=== PATIENT | male | born 1955 | race Caucasian/White ===

== ENCOUNTER 2019-11-25 01:05 | Outpatient (CLI) | payer BC, SELFPAY ==
[2019-11-25 19:18] LABS: SARS-CoV-2 RNA PCR Negative
== END 2019-11-25 01:06 | disposition home or self-care (01) ==
LOC: ANHCOVIDDT 01:05
PROVIDERS: PCP Family Medicine; Visit Provider Internal Medicine Gastroenterology
DX: Z01.812 Encounter for preprocedural laboratory examination (principal); Z20.828 Contact with and (suspected) exposure to other viral communicable diseases
CPT/HCPCS: 87635; C9803; U0003

== ENCOUNTER 2019-11-27 01:15 | Day surgery (SDC) | payer BC, SELFPAY ==
[2019-11-23 11:41] VITALS: BMI 27.9
[2019-11-27 09:18] VITALS: BP 168/93; PULSE 75; RESP 18; TEMP 36.2; O2SAT 100; BMI 27.7
--- NOTE | 2019-11-27 09:28 | WPDGICN ---
Assessment and Plan Assessment and plan (1) Positive colorectal cancer screening using Cologuard test: Code(s): R19.5 - Other fecal abnormalities Status: Acute Assessment and Plan: Plan is for colonoscopy today because colon guard test was positive. Further recommendations will be given after endoscopy. Plavix will be held briefly for this procedure. GI Consult Note Consult date/time: 11/27/19 09:28 HPI: Rivera Perez is a 63 year old male seen in evaluation at the request of Dr Darian Jha. Patient presents for screening colonoscopy. Patient recently underwent cologuard test which was found to be positive. He states his current weight appetite bowel movements are normal. He denies abdominal pain. He has had no blood in his stools. Family history is noncontributory. Past history is significant for atherosclerotic heart disease. He has a history of heart stents. Plavix will be held briefly for endoscopy. [facility] Family History Family History (Updated 02/23/16 @ 15:30 by DOCTOR UNKNOWN) Father Family history of cardiovascular disease Mother Family history of congestive heart failure Other Cerebrovascular accident Social History Social History Smoking packs per day: 0.5 Smoking cigarettes per day: 10.0 Years smoked: 30 Smoking pack-years: 15.00 Smoking status: Former smoker Tobacco type: cigarettes Smoking end date: 07/20/19 Alcohol intake: current Drinks per week: 10 Alcohol use details: 8 TO 10 BEERS PER WEEK Substance use: never Substance use type: does not use Living arrangements: with family Spiritual care concerns: No Meds Home Medications and Allergies Home Medications Medication Instructions Recorded Confirmed Type aspirin [Gonsalo Aspirin] 325 mg PO DAILY 11/23/19 11/23/19 History carvedilol 12.5 mg PO DAILY 11/23/19 11/23/19 History clopidogrel 75 mg PO DAILY 11/23/19 11/23/19 History nfynwndkspon-tnp-qucu-FA-vit K 1 tablet PO DAILY 11/23/19 11/23/19 History [Adults Multivitamin] ramipril 2.5 mg PO DAILY 11/23/19 11/23/19 History simvastatin 80 mg PO HS 11/23/19 11/23/19 History Allergies Allergy/AdvReac Type Severity Reaction Status Date / Time No Known Allergies Allergy Verified 11/23/19 11:22 Vital Signs Vital Signs - 24 hr 11/27/19 09:18 Temperature 97.2 F L Pulse Rate 75 Respiratory Rate 18 Blood Pressure 168/93 H Pulse Oximetry 100 Exam Narrative: Exam Narrative: patient is alert. Vital signs stable. HEENT exam unremarkable. Lungs are clear to auscultation and percussion. Heart is without murmur or extra sounds. Abdominal exam bowel sounds are present soft nontender with no organomegaly. Digital external rectal exam normal.
[2019-11-27] MEDS: LACTATED RINGERS 1,000 ML 150 ML IV CONT (09:32)
--- NOTE | 2019-11-27 09:53 | WPDANESEPPF ---
Anes - Initial Pre Proc Eval Procedure: Operation Date: 11/27/19 10:00 Proposed Procedures p Colonoscopy - Wilton Vizcarra MD Date/Time: 11/27/19 09:53 Surgeon: Wilton Vizcarra MD Pre Op Diagnosis: positive cologuard Patient Data Age: 63 Gender: M Height: 5 ft 11 in Weight: 90.3 kg Last Vital Signs Temp 97.2 F L 11/27/19 09:18 Pulse 75 11/27/19 09:18 Resp 18 11/27/19 09:18 BP 168/93 H 11/27/19 09:18 Pulse Ox 100 11/27/19 09:18 Allergies Allergy/AdvReac Type Severity Reaction Status Date / Time No Known Allergies Allergy Verified 11/23/19 11:22 Home Medications Medication Instructions Recorded Confirmed Type aspirin [Gonsalo Aspirin] 325 mg PO DAILY 11/23/19 11/23/19 History carvedilol 12.5 mg PO DAILY 11/23/19 11/23/19 History clopidogrel 75 mg PO DAILY 11/23/19 11/23/19 History sqyncdhjkhpd-grn-tsyh-FA-vit K 1 tablet PO DAILY 11/23/19 11/23/19 History [Adults Multivitamin] ramipril 2.5 mg PO DAILY 11/23/19 11/23/19 History simvastatin 80 mg PO HS 11/23/19 11/23/19 History Patient hx anesthesia problems: none Family hx anesthesia problems: none PMFSH Past Medical History Medical History (Updated 11/27/19 @ 09:49 by Alban Leon MD) CAD (coronary artery disease) Hyperlipidemia Hypertension Myocardial infarct, old Surgical History Surgical History (Updated 11/27/19 @ 09:49 by Alban Leon MD) Stented coronary artery Family History Family History (Updated 02/23/16 @ 15:30 by DOCTOR UNKNOWN) Father Family history of cardiovascular disease Mother Family history of congestive heart failure Other Cerebrovascular accident Social History Social History Smoking packs per day: 0.5 Smoking cigarettes per day: 10.0 Years smoked: 30 Smoking pack-years: 15.00 Smoking status: Former smoker Tobacco type: cigarettes Smoking end date: 07/20/19 Alcohol intake: current Drinks per week: 10 Alcohol use details: 8 TO 10 BEERS PER WEEK Substance use: never Substance use type: does not use Living arrangements: with family Spiritual care concerns: No Anes - Eval Final PreProcedure Day of Procedure 11/27/19 09:53 Patient weight: normal Heart: regular rate and rhythm Lungs: clear to auscultation Airway: Mallampati scale class II Neurological: alert and oriented Last oral intake: >/= 8 hours ASA classification: III Emergent: no Anesthetic plan: proceed Anesthesia type and monitoring: general GIVS and standard monitoring Informed Consent: The patient's anesthetic plan and its attendant risks and benefits were discussed with the patient/family/POA. Questions were solicited and answers provided to the satisfaction of the patient/family/POA.
[2019-11-27] MEDS: SIMETHICONE ORAL SUSPENSION 20 MG/0.3 ML 30 ML BOTTLE 0.6 ML IRRIGATION (10:16)
[2019-11-27 10:39] VITALS: BP 119/71; PULSE 71; RESP 16; O2SAT 98
[2019-11-27 10:49] VITALS: BP 129/70; PULSE 71; RESP 16; O2SAT 98
[2019-11-27 10:59] VITALS: BP 127/71; PULSE 66; RESP 18; O2SAT 98
== END 2019-11-27 11:30 | disposition home or self-care (01) ==
PROVIDERS: PCP Family Medicine; Visit Provider Internal Medicine Gastroenterology
PROC: 0DJD8ZZ Inspection of Lower Intestinal Tract, Via Natural or Artificial Opening Endoscopic (ICD-10-PCS; CPT 45378; principal; 2019-11-27 10:00)
DX: Z12.11 Encounter for screening for malignant neoplasm of colon (principal); D12.5 Benign neoplasm of sigmoid colon; K63.5 Polyp of colon; K64.8 Other hemorrhoids; R19.5 Other fecal abnormalities; I25.10 Atherosclerotic heart disease of native coronary artery without angina pectoris; I10 Essential (primary) hypertension; I25.2 Old myocardial infarction; E78.5 Hyperlipidemia, unspecified; Z79.02 Long term (current) use of antithrombotics/antiplatelets; Z79.82 Long term (current) use of aspirin; Z95.5 Presence of coronary angioplasty implant and graft; Z87.891 Personal history of nicotine dependence
CPT/HCPCS: 45385; 88305; J2001; J2704; J7120

== ENCOUNTER → 2020-05-14 02:42 | Outpatient (CLI) | payer OTHER, SELFPAY ==
[2020-05-14 20:22] LABS: SARS-CoV-2 RNA PCR Negative
== END ==
PROVIDERS: PCP Family Medicine; Visit Provider Specialist
DX: Z01.812 Encounter for preprocedural laboratory examination (principal); Z20.822 Contact with and (suspected) exposure to COVID-19
CPT/HCPCS: C9803; U0003; U0005

== ENCOUNTER 2020-05-18 01:38 | Day surgery (SDC) | payer OTHER, SELFPAY ==
[2020-05-17 16:47] VITALS: BMI 28.6
[2020-05-18] VITALS (19 sets, daily range): BP systolic 115–164; BP diastolic 59–104; PULSE 62–74; RESP 14–26; TEMP 36.4; O2SAT 95–98; BMI 28.5
[2020-05-18 07:40] LABS: Basophils Percent Auto 0.7 % (0.2-1.2); Eosinophils Absolute Auto 0.2 K/mm3 (0-0.3); Eosinophils Percent Auto 3.9 % (0-4.4); Hematocrit 44.7 % (42.0-52.0); Hemoglobin 14.8 g/dL (14.0-18.0); Immature Granulocyte Absolute 0.02 K/mm3 (0.00-0.031); Immature Granulocyte Percent A 0.4 % (0-0.5); Lymphocytes Absolute Auto 1.84 K/mm3 (0.9-3.2); Lymphocytes Percent Auto 32.3 % (18.3-44.2); Mean Corpuscular HGB Conc 33.1 g/dl (32-36); Mean Corpuscular Hemoglobin 30.4 pg (26-34); Mean Corpuscular Volume 91.8 fl (80-100); Mean Platelet Volume 9.7 fl (7.4-10.4); Monocytes Absolute Auto 0.6 K/mm3 (0.1-0.6); Monocytes Percent Auto 9.6 % (2.6-8.5); Neutrophils Percent Auto 53.1 % (45.5-73.1); Platelet Count Result 169 k/mm3 (150-375); Red Blood Count 4.87 M/mm3 (4.6-6.20); Red Cell Distribution Width 12.4 % (11.5-14.5); White Blood Count 5.7 K/mm3 (4.5-10.0)
--- NOTE | 2020-05-18 07:46 | SUR.PREOP ---
Patient arrives ambulatory to [facility] accompanied by . VS obtained, PIV established, pulses assessed, and groins prepped. Labs obtained and sent. Consent signed. Patient updated on plan of care and verbalizes understanding. Will continue to monitor.
[2020-05-18 07:52] LABS: Anion Gap 5 mmol/L (8-16); Blood Urea Nitrogen 15 mg/dL (9-20); Calcium 8.9 mg/dL (8.4-10.2); Carbon Dioxide 29 mmol/L (22-30); Chloride 108 mmol/L (98-107); Estimated CRCL calculation 81 ml/min; Estimated Glomerular Filt Rate > 60; Glucose 112 mg/dL (75-110); Potassium 4.8 mmol/L (3.4-5.0); Sodium 142 mmol/L (137-145)
[2020-05-18 08:01] LABS: INR 0.9; Prothrombin Time 12.4 Seconds (11.1-14.7)
--- NOTE | 2020-05-18 10:46 | WPDMODSED ---
Moderate Sedation Note-Pt Data Patient Data Diagnosis: Abnormal nuclear stress test with reduced left ventricular systolic function Present Complaint: this is a 64-year-old patient with remote history of anterior wall infarction. He was being evaluated because of symptoms of dyspnea and chest pain and findings demonstrated large fixed anterior infarction with low left ventricular ejection fraction which was significantly reduced from previous records in this patient's chart. Because of the significant reduction in LV systolic function a follow-up angiogram has been recommended Procedure to be performed/Plan: left heart catheterization Allergies Allergy/AdvReac Type Severity Reaction Status Date / Time No Known Allergies Allergy Verified 05/18/20 07:36 Home Medications Medication Instructions Recorded Confirmed Type aspirin [Gonsalo Aspirin] 325 mg PO DAILY 11/23/19 05/18/20 History carvedilol 12.5 mg PO DAILY 11/23/19 05/18/20 History clopidogrel 75 mg PO DAILY 11/23/19 05/18/20 History gowjkkiiibya-hcc-kebv-FA-vit K 1 tablet PO DAILY 11/23/19 05/17/20 History [Adults Multivitamin] ramipril 2.5 mg PO DAILY 11/23/19 05/18/20 History simvastatin 80 mg PO HS 11/23/19 05/17/20 History Current Medications: Active Medications Sodium Chloride (Normal Saline Iv) 500 mls @ 100 mls/hr IV CONT .Q5H MARTIN Sedation/Anesthesia: No previous sedation/anesthesia problems (including family history). [facility] Past Medical History Medical History (Updated 11/27/19 @ 09:49 by Alban Leon MD) CAD (coronary artery disease) Hyperlipidemia Hypertension Myocardial infarct, old Surgical History Surgical History (Updated 11/27/19 @ 09:49 by Alban Leon MD) Stented coronary artery Family History Family History (Updated 02/23/16 @ 15:30 by DOCTOR UNKNOWN) Father Family history of cardiovascular disease Mother Family history of congestive heart failure Other Cerebrovascular accident Social History Social History Smoking packs per day: 0.5 Smoking cigarettes per day: 10.0 Years smoked: 30 Smoking pack-years: 15.00 Smoking status: Former smoker Tobacco type: cigarettes Smoking end date: 07/20/19 Alcohol intake: current Drinks per week: 10 Substance use: never Substance use type: does not use Spiritual care concerns: No Mod Sed Physical Exam Physical Exam Pre Procedural Exam: Normal: Appearance, Nose, Neck, Throat, Airway, Lungs, Heart Rate, Heart Rhythm, Neuro Exam and Extremities and Variation: Heart Size ( PMI is enlarged and laterally displaced) Hours since solid foods: 14 Hours since liquid intake: 14 Internal Medicine - PN: Obj Da Vital Signs Vital Signs: Vital Signs - 24 hr 05/18/20 07:38 Temperature 36.4 C Pulse Rate 74 Respiratory Rate 17 Blood Pressure 164/97 H Pulse Oximetry 98 Meds/Results Medications: Active Medications Generic Name Dose Route Start Last Admin Trade Name Andra PRN Reason Stop Dose Admin Sodium Chloride 500 mls @ 100 mls/hr 05/18/20 07:00 Normal Saline Iv IV CONT .Q5H MARTIN Labs CBC & Chem 7: 05/18/20 07:26 05/18/20 07:26 Labs: Laboratory Results - last 24 hr 05/18/20 05/18/20 05/18/20 07:26 07:26 07:26 WBC 5.7 RBC 4.87 Hgb 14.8 Hct 44.7 MCV 91.8 MCH 30.4 MCHC 33.1 RDW 12.4 Plt Count 169 MPV 9.7 Immature Gran % (Auto) 0.4 Neut % (Auto) 53.1 Lymph % (Auto) 32.3 [place] % (Auto) 9.6 H Eos % (Auto) 3.9 Baso % (Auto) 0.7 Lymph # (Auto) 1.84 [place] # (Auto) 0.6 Eos # (Auto) 0.2 Baso # (Auto) 0.0 Abs Immat Gran (auto) 0.02 Absolute Neuts (auto) 3.0 Absolute Nucleated RBC 0.0 Nucleated RBC % 0.0 PT 12.4 INR 0.9 Sodium 142 Potassium 4.8 Chloride 108 H Carbon Dioxide 29 Anion Gap 5 L BUN 15 Creatinine 0.90 Estim Creat Clear Calc 81 Estimated GFR > 60 Glucose 112 H C
--- NOTE | 2020-05-18 11:30 | WPDCARDPROC ---
Cardiac Cath Procedure Note Date of procedure:: 05/18/20 Performing physician:: Vinay Palafox MD Indication:: Coronary artery disease with significant decline in LV systolic function Brief clinical history:: this is a 64-year-old man with coronary disease sustaining an anterior wall infarction in 1994 which was treated with balloon angioplasty he subsequently had a RCA stent procedure done in 2002. He is reporting intermittent episodes of chest pain in an unpredictable random fashion. A stress test was performed in the outpatient setting which demonstrated markedly reduction in left ventricular systolic function prompting recommendation to perform a follow-up angiogram. Procedure Procedure performed:: Left ventriculography coronary angiography Sedation/Medication given:: fentanyl 50 mg Versed 2 mg case start time 11:00 a.m. case end time 11:20 a.m. sedation provided by Adenike Shirley RN, trained observer Access site:: right femoral artery Estimated blood loss:: 10-15 cc Procedure note:: patient was brought to the catheterization lab in the postabsorptive state where the right femoral triangle was prepared and draped in the usual fashion. lidocaine was administered for local anesthesia and using the modified Seldinger technique 5 Montenegrin sheath was placed into the right femoral artery. After this left heart catheterization was carried out. A 5 Montenegrin angled pigtail catheter was used does document left-sided hemodynamics and to injected LV g in the ALDRICH projection. Following this pullback pressures were measured across the aortic valve. A standard 5 Montenegrin JR4 catheter was then used to engage and inject the right coronary artery and orthogonal projections. The standard 5 Montenegrin FL4 catheter was used to engage and inject the left coronary artery in multiple projections. The cineangiograms were reviewed and the case was then terminated. He was taken to the holding area for manual sheath removal there were no procedural complications. 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 Findings:: Hemodynamics: Central aortic pressure is 120/58 left ventricle 120/6 end-diastolic pressure 20 there is no significant gradient upon pullback across the aortic valve. Left ventricle: The LV is markedly dilated there is severe global systolic hypocontractility noted with an ejection fraction that I would visually estimate to be 10%. The left main coronary artery is short medium in caliber and patent the LAD is a medium caliber artery extending down to around the apex the proximal segment of the LAD has minimal luminal narrowing but no more than about 20-30% stenosis. There is MUNIRA 3 flow in the LAD all the way down to the apex. No significant recurrent stenosis following balloon angioplasty 26 years ago circumflex is a moderate caliber artery giving rise to the marginal branch is the circumflex is free of significant disease the right coronary artery is moderate caliber and dominant to the posterior circulation. There is visible stent material in the 2nd portion of the RCA. This segment of the artery has 95% stenosis in the stented segment. This stent again was placed 18 years ago. Conclusion:: 1. Coronary artery disease with recurrent high-grade stenosis in the mid RCA which was stented in the remote past as detailed above 2. no significant stenosis in the LAD which was balloon dilated in the remote past as detailed above 3. profound left ventricular systolic dysfunction Vinay Palafox MD [facility]
--- NOTE | 2020-05-18 12:42 | PM.PNCARD ---
Progress Note: A&P Additional Plan 64-year-old man with: Coronary artery disease following anterior wall infarction 26 years ago and angioplasty of the LAD at that time as well as RCA disease that was stented in 2002. Catheterization today demonstrates the left coronary to be patent but there is high-grade stenosis in the stented segment of his mid RCA. Left ventricular ejection fraction is profoundly depressed. At this time my recommendations would be to transition his Edwardo inhibitor to Entresto, arrange for PCI of the right coronary lesion ideally downtown at [facility] because of the very poor LV function this is a high-risk intervention. While he is down there he can be seen in consultation by the professor of industrial technology so that if his ejection fraction does not respond well permanent ICD can be arranged for in the future. In the meantime we will arrange for a life vest to be supplied to him today prior to discharge. If this cannot be supplied prior to discharge we will keep him in the hospital until that has been arranged. Vinay Palafox MD [facility] Subjective Date/time seen: Date of service: 05/18/20 12:42 Interval history: Follow-up visit in this 64-year-old man with: Coronary artery disease with a remote history of anterior wall infarction treated with balloon angioplasty in 1994 and RCA stenting in 2002. Patient presents for elective follow-up catheterization this morning because of symptoms of dyspnea, intermittent atypical sounding chest pain but marked decline in left ventricular systolic function on nuclear stress test data. Catheterization done today demonstrates remaining patency of his left coronary artery, high-grade stenosis in the 2nd portion of the RCA which was previously stented and profoundly depressed left ventricular systolic function with an ejection fraction of 10%. Exam Const: General: comfortable and no acute distress HENMT: Mouth: Yes moist mucous membranes Eyes: Sclera: sclerae normal Pupils: Equal, round and reactive pupils present Neck: Neck: supple and no JVD Thyroid: thyroid normal Resp: Effort & Inspection: normal respiratory effort Auscultation: clear to auscultation bilaterally Cardio: Rate: regular rate Rhythm: regular rhythm Other: PMI enlarged and laterally displaced summation gallop is audible GI: GI Palp: Yes Soft to palpation Auscultation: normal bowel sounds Skin: General skin exam: normal color Neuro: Cognition (Neuro): normal cognition Extrem: General: normal to inspection Objective Data Vital Signs Vital Signs: Vital Signs - 24 hr 05/18/20 07:38 05/18/20 11:49 05/18/20 11:53 Temperature 36.4 C 36.4 C Pulse Rate 74 65 64 Respiratory Rate 17 17 15 Blood Pressure 164/97 H 128/74 131/59 L Pulse Oximetry 98 95 96 05/18/20 11:55 05/18/20 12:00 05/18/20 12:05 Temperature Pulse Rate 68 68 71 Respiratory Rate 26 H 15 15 Blood Pressure 128/80 135/94 H 146/104 H Pulse Oximetry 96 97 97 05/18/20 12:10 05/18/20 12:15 05/18/20 12:25 Temperature Pulse Rate 67 64 67 Respiratory Rate 14 15 17 Blood Pressure 140/83 115/80 140/87 Pulse Oximetry 97 97 97 Meds/Results Medications: Active Medications Generic Name Dose Route Start Last Admin Trade Name Freq PRN Reason Stop Dose Admin Sodium Chloride 500 mls @ 100 mls/hr 05/18/20 07:00 Normal Saline Iv IV CONT .Q5H MARTIN Sodium Chloride 1,000 mls @ 125 mls/hr 05/18/20 11:29 Normal Saline Iv IV CONT 05/18/20 19:28 .Q8H ONE Labs Labs: Laboratory Results - last 24 hr 05/18/20 05/18/20 05/18/20 07:26 07:26 07:26 WBC 5.7 RBC 4.87 Hgb 14.8 Hct 44.7 MCV 91.8 MCH 30.4 MCHC 33.1 RDW 12.4 Plt Count 169 MPV 9.7 Immature Gran % (Auto) 0.4 Neut % (Auto) 53.1 Lymph % (Auto) 32.3 [place] % (Auto) 9.6 H Eos % (Auto) 3.9 Baso % (Auto) 0.7 Lymph # (Auto) 1.84 [place] # (Auto) 0.6 Eos # (Auto) 0.2 Baso # (Auto) 0
--- NOTE | 2020-05-18 18:20 | SUR.PHASEII ---
DEBORAH Jeong went through discharge instructions with patient and . Patient verbalized understanding of discharge instructions. Patient was escorted by wheelchair to car and discharged.
== END 2020-05-18 18:35 | disposition home or self-care (01) ==
PROVIDERS: Visit Provider Specialist
PROC: 4A023N7 Measurement of Cardiac Sampling and Pressure, Left Heart, Percutaneous Approach (ICD-10-PCS; CPT 93452; principal; 2020-05-18 08:30)
DX: I25.10 Atherosclerotic heart disease of native coronary artery without angina pectoris (principal); R94.39 Abnormal result of other cardiovascular function study; R07.9 Chest pain, unspecified; R06.00 Dyspnea, unspecified; I11.9 Hypertensive heart disease without heart failure; I25.2 Old myocardial infarction; Z95.5 Presence of coronary angioplasty implant and graft; Z79.02 Long term (current) use of antithrombotics/antiplatelets; Z79.82 Long term (current) use of aspirin; Z87.891 Personal history of nicotine dependence
CPT/HCPCS: 36415; 80048; 85025; 85610; 93458; C1887; C1894; C9803; J0461; J0583; J1644; J2250; J3010; J7040; U0003; U0005

== ENCOUNTER 2022-08-01 16:16 | Outpatient (CLI) | payer BC, SELFPAY ==
--- NOTE | ~2022-08-01 | US_ITS ---
EXAMINATION: US aorta [facility] scr[facility] DATE: 08/02/2022 08:35 CDT INDICATION: Nicotine dependence] TECHNIQUE: Grayscale, color Doppler, and pulsed Doppler images of the aorta and common iliac arteries were obtained. COMPARISON: None. FINDINGS: The proximal aorta measures 2.3 cm greatest sagittal dimension. The mid aorta measures 1.7 cm greates t sagittal dimension. The distal aorta measures 1.9 cm greatest sagittal dimension. The right common internal iliac artery measures 9 mm. The left common iliac artery measures 12 mm. IMPRESSION: 1. Normal caliber aorta without aneurysm. Reviewed, dictated and finalized at location L.
--- NOTE | ~2022-08-01 | CT_ITS ---
EXAMINATION: CT lung screening DATE: 08/01/2022 21:25 INDICATION: Nicotine dependence. TECHNIQUE: Computed tomography (CT) of the chest was performed without intravenous contrast. Automate d exposure control and iterative reconstruction technique were employed. COMPARISON: CT dated 08/01/2022 FINDINGS: There is atherosclerosis of the aorta and coronary arteries. Trace pericardial effusion. No thoracic lymphadenopathy. There is a 1.4 cm subcutaneous nodule left posterior chest inferiorly, lik nighat benign sebaceous cyst the upper abdomen is unremarkable. There is a 2-3 mm right upper lobe nodul e, image 40. There is a 2 mm right lower lobe nodule, image 72. There is a 3 mm right fissural nodule , image 71. No endobronchial lesions. No focal consolidation. Mild emphysema. No pneumothorax. Mild t horacic spondylosis.. IMPRESSION: 1. Lung-RADS category 2: Benign appearance or behavior. Continue annual screening with noncontrast lo w-dose chest CT in 12 months. Reviewed, dictated and finalized at location L. IMPRESSION: 1. Lung-RADS category 2: Benign appearance or behavior. Continue annual screeni ng with noncontrast low-dose chest CT in 12 months.
== END 2022-08-01 16:17 | disposition home or self-care (01) ==
LOC: ANHIMG 16:23
PROVIDERS: PCP Student in an Organized Health Care Education/Training Program; Visit Provider Student in an Organized Health Care Education/Training Program
DX: Z13.6 Encounter for screening for cardiovascular disorders (principal); F17.210 Nicotine dependence, cigarettes, uncomplicated
CPT/HCPCS: 71271; 76706

== ENCOUNTER 2024-10-24 09:47 | Inpatient (IN) | payer BC, MEDICARE, SELFPAY ==
[2024-10-24] VITALS (62 sets, daily range): BP systolic 48–149; BP diastolic 29–112; PULSE 0–154; RESP 10–38; TEMP 37; O2SAT 13–100
--- NOTE | ~2024-10-24 | US_ITS ---
EXAMINATION: US abdomen limited DATE: 10/24/2024 12:06 INDICATION: Intermittent epigastric pain. Positive Kaufman sign. TECHNIQUE: Multiple grayscale and Doppler ultrasound images of the abdomen were obtained. COMPARISON: None FINDINGS: The pancreatic head and body are normal in appearance. The pancreatic tail is not visualized. Liver has normal echogenicity and contour, with a smooth surface. No liver lesion identified. No intrahepatic biliary duct dilation suspected. Portal venous flow was seen in the hepatopetal, normal direction and has normal Doppler waveform. The gallbladder is normal in appearance. There is no cholelithiasis. The common bile duct measures 3-4 mm, which is normal. Sonographic Kaufman sign was reported as negative by the heating and ventilating drafter. The visualized cephalad inferior vena cava is normal. Visualized portion of the right kidney demonstrates normal contour and echogenicity with no hydronephrosis. IMPRESSION: 1. Normal right upper quadrant ultrasound. Reviewed, dictated and finalized at location A.
--- NOTE | ~2024-10-24 | XR_ITS ---
EXAMINATION: XR chest 1V portable DATE: 10/24/2024 16:00 INDICATION: Worsening heart failure TECHNIQUE: frontal view of the chest was obtained. COMPARISON: Chest radiograph and CT from earlier on 10/24/24 FINDINGS: Mild reticular opacities at the bilateral lung bases which could represent atelectasis or new minimal pulmonary edema. No pleural effusion or pneumothorax. Cardiomegaly. Single lead cardiac pacemaker/AICD with distal tip near the apex of the right ventricle. IMPRESSION: 1. Mild reticular opacities at the bilateral lung bases which could represent atelectasis or new minimal pulmonary edema. Reviewed, dictated and finalized at location A. IMPRESSION: 1. Mild reticular opacities at the bilateral lung bases which could represent a telectasis or new minimal pulmonary edema.
--- NOTE | ~2024-10-24 | XR_ITS ---
EXAMINATION: XR chest PICC line DATE: 10/24/2024 17:11 INDICATION: PICC line placement TECHNIQUE: frontal view of the chest was obtained. COMPARISON: Chest radiograph dated 10/24/24 at 3:54 PM FINDINGS: Right upper extremity peripherally inserted central venous catheter (PICC) tip near the superior cavoatrial junction. Unchanged mild reticular opacities at the bilateral lung bases. No pleural effusion or pneumothorax. Mild cardiomegaly. Single lead cardiac pacemaker/AICD with lead tip at the apex of the right ventricle. IMPRESSION: 1. Right PICC line tip near the superior cavoatrial junction. 2. Persistent mild reticular opacities at the bilateral lung bases which could represent atelectasis or minimal pulmonary edema. Reviewed, dictated and finalized at location A.
--- NOTE | ~2024-10-24 | CT_ITS ---
EXAMINATION: CTA chest PE abdomen pel DATE: 10/24/2024 12:41 INDICATION: Chest pain, shortness of breath and d-dimer. Epigastric abdominal pain and transaminitis. TECHNIQUE: Computed tomography (CT) pulmonary angiogram of the chest was performed with 100 mL Omnipaque-350 intravenous contrast. Additional 3D reconstructions utilizing coronal maximum intensity projection (MIP) were performed. CT of the abdomen and pelvis was performed with intravenous contrast utilizing the same contrast bolus following a short delay. Automated exposure control and iterative reconstruction technique were employed. The dose-length product was 1189.65 mGy-cm. COMPARISON: None FINDINGS: Chest: No pulmonary embolism. Very small right pleural effusion. Mild dependent atelectasis in the bilateral lower lobes, right greater than left. No pneumonia, pulmonary edema or pneumothorax. Heart size is normal. Atherosclerotic coronary artery calcifications and likely coronary artery stenting along the right coronary artery. Small pericardial effusion. Thoracic aorta is normal in caliber. Single lead cardiac pacemaker/AICD with lead tip near the apex of the right ventricle. Mild to moderate thoracic spondylosis with bridging osteophytes at multiple levels consistent with diffuse idiopathic skeletal hyperostosis (DISH). Abdomen/pelvis: Liver, gallbladder, spleen, pancreas, bilateral adrenal glands and right kidney are normal. 1.8 cm left renal cyst. Mild diverticulosis along the descending and sigmoid colon without adjacent inflammatory stranding to suggest diverticulitis. Appendix is not visualized and there is a suture line along the tip the cecum consistent with prior appendectomy. No bowel obstruction. Mild wall thickening of the bladder with stranding in the fat surrounding the bladder is concern for cystitis. Small amount of free fluid in the pelvis. No abscess or free intraperitoneal gas. There is calcified atherosclerosis of the aorta and many of the other arteries. Fusiform aneurysms of the bilateral common iliac arteries measuring 2.8 cm in diameter on the left and 2.2 cm on the right. Severe stenosis at the bifurcation of the left common iliac artery. There is additional moderate stenosis at the origin of the bilateral superficial femoral arteries. Small right and moderate-sized left fat-containing inguinal hernias with additional small amount of ascites in the direct component of the left inguinal hernia. Mild lumbar spondylosis. IMPRESSION: 1. No pulmonary embolism. 2. Very small right pleural effusion. 3. Small pericardial effusion. 4. Mild wall thickening of the bladder and mild stranding in the surrounding fat raising possibility of cystitis. Correlate with urinalysis. 5. Nonspecific small amount of ascites in the deep pelvis. 6. Small right and moderate-sized left inguinal hernias, both containing fat and with additional small amount of ascites on the left. 7. Extensive atherosclerotic disease and bilateral common iliac artery aneurysms with severe stenosis at the bifurcation of the left common iliac artery. Reviewed, dictated and finalized at location A. IMPRESSION: 1. No pulmonary embolism. 2. Very small right pleural effusion. 3. Small pericardial effusion. 4. Mild wall thickening of the bladder and mild stranding in the surrounding fa t raising possibility of cystitis. Correlate with urinalysis. 5. Nonspecific small amount of ascites in the deep pelvis. 6. Small right and moderate-sized left inguinal hernias, both containing fat an d with additional small amount of ascites on the left. 7. Extensive atherosclerotic disease and bilateral common iliac artery aneurysm s with severe stenosis at the bifurcation of the left common iliac artery.
--- NOTE | ~2024-10-24 | XR_ITS ---
EXAMINATION: XR chest 1V portable DATE: 10/24/2024 11:01 INDICATION: Chest pain and shortness of breath TECHNIQUE: frontal view of the chest was obtained. COMPARISON: Chest CT dated 08/01/2022 FINDINGS: Mild linear discoid atelectasis/scarring at the bilateral costophrenic angles. No other airspace opacities, pulmonary edema, pleural effusion or pneumothorax. Heart size is normal. Single lead pacemaker/AICD seen with lead tip projecting over the apex of the right ventricle. There are bridging osteophytes at multiple levels consistent with diffuse idiopathic skeletal hyperostosis (DISH). IMPRESSION: 1. Mild discoid atelectasis/scarring at the bilateral lung bases. Reviewed, dictated and finalized at location A.
--- OUTSIDE RECORDS SUMMARY | 2024-10-24 09:50 | XMS_ITS | Clinical Summary ---
Author Organization [facility] Address [address] [place] [address] Care Team Providers Care Rn [facility] Name Role Phone Unavailable Primary Care Provider Unavailabl e Source Comments [facility],non-owned Affiliates and Associated Physician Practices is amultiple site organization consisting of ambulatory clinics and hospital sitesin [place], [place], [place] and [place]. This disclosure is being madepursuant to the Care Everywhere program and may not contain all information available regarding this patient. 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 Gender Identity Not on file Sexual Orientation Not on file Plan of Treatment Health Maintenance Due Date Last Done Comments COLOGUARD (AGES 45-75) - COL ON CA SCREENING 1956 COLON MONITORING 1956 COLONOSCOPY - COLON CA SCREENING 1956 CT COLONOGRAPHY - COLON CA SCREENING 1956 Colorectal Cancer Screening 1956 FIT - COLON CA SCREENING 1956 FLEX SIG - COLON CA SCREENING 1956 LIPID TESTING 1956 HEPATITIS C SCREENING 11/23/1974 DTAP/TDAP/TD VACCINES (1 - Tdap) 11/28/1975 PNEUMOCOCCAL VACCINE 50+ (1 of 1 - PCV) 2006 ZOSTER VACCINE (1 of 2) 2006 DEPRESSION SCREENING 02/19/2024 COVID-19 VACCINE (1 - 2023-2 5 season) 2024 INFLUENZA VACCINE (#1) 2024 Respiratory Syncytial Virus (RSV) Vaccine Pt: or over 60 yrs (1 - 1-dose 75+ series) 11/28/2031 HEPATITIS B VACCINE Aged Out No longe r eligible based on patient's age to complete this topic HIB VACCINE Aged Out No longer eligi ble based on patient's age to complete this topic HPV VACCINE Aged Out No longer eligi ble based on patient's age to complete this topic MENINGOCOCCAL (Group B) VACC INE SHARED DECISION-MAKING Aged Out No longer eligibl e based on patient's age to complete this topic MENINGOCOCCAL GROUPS A/C/Y/W VACCINE Aged Out No longer eligible b ased on patient's age to complete this topic Insurance [facility]
--- OUTSIDE RECORDS SUMMARY | 2024-10-24 09:50 | XMS_ITS | Clinical Summary ---
Author Organization [facility] [address] Address [address] [place] [address] Care Team Providers Care Co Pilot Name Role Phone Iliamaribell Nichoromina Kitchen Primary Care Provide r Allergies No known active allergies Medications aspirin 81 mg enteric coated tablet Take 1 tablet (81 mg total) by mouth daily 30 tablet 11 1 Active therapeutic multivitamin (THERA) tabletIndication s:Vitamin Deficiency Prevention Take 1 tablet by mouth daily Active carvediloL (COREG) 12.5 mg tablet TAKE 1 TABLET(12. 5 MG) BY MOUTH TWICE DAILY WITH MEALS 180 tablet 2 4 Active rosuvastatin (CRESTOR) 20 mg tablet Take 1 tablet (20 mg total) by mouth daily 90 tablet 3 5 026 Active sacubitriL-valsa rtan (ENTRESTO) 49-51 mg tablet TAKE 1 TABLET BY MOUTH TWICE DAILY 180 tablet 2 5 Active sacubitriL-valsa rtan (ENTRESTO) 49-51 mg tabletIndication s:chronic heart failure Take 1 tablet by mouth 2 (two) times a day 180 tablet 3 4 025 Discontinued Active Problems Problem Noted Date Diagnosed Date Heart failure with reduced left ventricular func tion 05/28/2023 Automatic implantable cardiac defibrillator in s itu 02/12/2023 Overview (02/12/2023): Hernán Single ICD. Dx; ICM. DOI 02/27/2023-Kahanda. Berry remote monitoring. Ischemic cardiomyopathy 06/16/2020 History of coronary artery stent placement 06/16 Coronary artery disease invo [place]ving [place] coronary artery of [place] heart without angina pectoris 10/04/2016 Status post insertion of drug eluting coronary a rtery stent 10/04/2016 Arthralgia of shoulder 04/11/2010 Localized osteoarthrosis 04/11/2010 Encounters Date Type Department Care Team Description 09/17/2024 11:45 AM CDT Office Visit [facility] Cardiology at [address] [place] [address] Vinay Palafox MD Ischemic cardiomyopathy (Primary Dx); Status post insertion of drug eluting coronary artery stent; Automatic implantable cardiac defibrillator in situ 07/28/2024 7:45 AM CDT Ancillary Procedure [facility] Card[facility] [address] [address] Ischemic cardiomyopathy; Automatic implantable cardiac defibrillator in situ from Last 3 Months Surgical History Surgery Date Site/Laterality Comments CARDIAC CATHETERIZATION CORONARY ANGIOPLASTY CORONARY STENT PLACEMENT HERNIA REPAIR APPENDECTOMY ULNAR NERVE TRANSPOSITION Right Medical History Medical History Date Comments Coronary artery disease Hyperlipidemia Hypertension CHF (congestive heart failure) ([facility]) Family History Medical History Relation Name Comments Heart attack Father 2 Myocardial Infa rction; Relation Name Status Comments Father 1 Alive Father 2 Social History Tobacco Use Types Packs/Day Years Used Date Smoking Tobacco: Former Cigarettes Smokeless Tobacco: Never Tobacco Cessation:Counseling Given: Not Answered Comments:Smoking History Packs/day: 0 Packs Alcohol Use Standard Drinks/Week Comments Yes 6 (1 standard drink = 0.6 oz pur e alcohol) AUDIT-C Answer Date Recorded Q1: How often do you have a drink containing alc ohol? 2-3 times a week 02/27/2023 Q2: How many drinks containi ng alcohol do you have on a typical day when you are drinking? 1 or 2 02/27/2023 Q3: How often do you have si x or more drinks on one occasion? Weekly 02/27/2023 Personal Safety Answer Date Recorded Have you ever been in or are you currently in a harmful physical or emotional relationship or is someone making you feel afraid or unsafe? 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 Respiratory Rate 18 05/28/2023 10:1 6 AM CDT Oxygen Saturation 97% 09/17/2024 11: 46 AM CDT Inhaled Oxygen Concentration - - Weight 102.6 kg (226 lb 1.6 oz) 025 11:46 AM CDT Height 182.9 cm (6') 09/17/2024 11:46 AM CDT Body Mass Index 30.66 09/17/2024 11:46 AM CDT Plan of Treatment Health Maintenance Due Date Last Done Comments Colon Cancer Screening-Colonoscopy 1955 Depression Screening 1955 Hepatitis C Screening 1955 Prostate Cancer Screening-PSA 1956 Hepatitis B Screening 1974 Abdominal Aortic Aneurysm (A AA) Screen 2021 Well Visit 65+ 2021 Pneumococcal vaccine 65+ (2 of 2 - PCV) 12/05/2021 12/05/2020 Covid-19 Vaccine ( - season) 2023 02/05/2021, 05/08/2020, 04/17/2020 Fall Risk Assessment 02/29/2024 02/28/2023 Influenza Vaccine (#1) 2024 , 11/13/2021, 11/24/2020 DTaP/Tdap/Td Vaccine (2 - Td or Tdap) 01/29/202701/2017 Zoster Vaccine Completed 10/12/2021, 07/26/2021 Medical Devices Implanted Type Area Museum Assistant Device Identifier Shelf Expiration Date Model / Serial / Lot iFLYER Scientific Jeannie [id number] Stent Drug Eluting S [facility] Mr 3.93g02vd - [id number] - [id number] Implanted:Qty: 1 on 05/27/2020 by Nick Bailon MD PhD at [facility] Stent [employer] Jeannie 01/19/2021 [id number] / [id number] / [id number] [employer] Jeannie [id number] Stent Drug Eluting S Randal Us Mr 3.82v88vf - [id number] - [id number] Implanted:Qty: 1 on 05/27/2020 by Nick Bailon MD PhD at [facility] Stent [employer] Jeannie 01/19/2021 [id number] / [id number] / [id number] Medtronic [employer] X [id number] Resolute [place] 3mm 2.1-2.7fr 30mm 140cm Rapid Exchange Radiopaque - [id number] - [id number] Implanted:Qty: 1 on 05/27/2020 by Nick Bailon MD PhD at [facility] Stent Medtronic Inc 01/20/2022 [id number] / [id number] / [id number] Stent Heart Daig Jeannie/[employer] [id number] Angio-Seal Evolution 8fr .038in Guidewire Bypass Tube Suture - [id number] - [id number] Implanted:Qty: 1 on 05/27/2020 by Nick Bailon MD PhD at [facility] Terumo Medical Jeannie 03/20/2021 [id number] / [id number] / [id number] [employer] Inc Durata 6.8fr 65cm True Bipolar Active Fixation Extendable 1 Coil 7122q/65 - [id number] - [id number] Implanted:Qty: 1 on 02/27/2023 by Candelario Hayes MD at [facility] [employer] 12/18/2025 [id number]/65 / [id number] / Jim Vascular Defibrillator Vr Mri Compatible Rate Responsive [place] [id number] - [id number] - [id number] Implanted:Qty: 1 on 02/27/2023 by Candelario Hayes MD at [facility] [employer] [id number] 12/18/2024 CDVRA 500Q / [id number] / Procedures Procedure Name Priority Date/Time Associated Diagnosis Comments DEVICE CHECK - REMOTE Routine 08/04/2024 2:22 PM CDT Ischemic cardiomyopathy Automatic implantable cardiac defibrillator in situ from Last 3 Months Results * DEVICE CHECK - REMOTE (08/04/2024 2:22 PM CDT) Anatomical Region Laterality Modality Other Narrative 09/28/2024 7:35 AM CDT Jim Single ICD. Dx; ICM. DOI 02/27/2023-Abigail. Jamal remote monitoring. Routine VVI ICD Remote. Transmission attached. Battery status 89%, 9.3-9.5 years remaining battery life to RIKA. Stable Charge time and Shock impedance. Stable lead impedances, pacing, and sensing threshold. 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 (0) Ventricular tachy arrhythmias detected. Medication: ASA 81 mg, carvedilol 12.5 mg, clopidogrel 75 mg, Entresto 49-51 mg Follow up: Office Pacemaker/ICD scheduled 07/28/25 [place] remote 10/27/24 Ron Ibarra RN Vinay Palafox MD [facility] Final Result from Last 3 Months Insurance PENDING SALE TO [facility] [employer] CHOICE ANTHEM ACCESS CHOICE ANTHEM ACCESS CHOICE Advance Directives For more information, please contact: [phone] * Full Code (Latest Code Status on File) Date Activated Date Inactivated Comments 02/27/2023 2:01 PM 02/28/2023 3:22 PM * Full Code Date Activated Date Inactivated Comments 05/27/2020 10:59 AM 05/27/2020 8:54 PM Care Teams Co Pilot Relationship Specialty Start Date End Date Nicho Bobby DO [address] [place] [id number] PCP - General Family Medicine 04/26/20
--- OUTSIDE RECORDS SUMMARY | 2024-10-24 09:50 | XMS_ITS | Clinical Summary ---
Author Organization [facility] Care Team Providers Care Educational Administrator Name Role Phone Unavailable Primary Care Provider Unavailabl e Social History Tobacco Use Types Packs/Day Years Used Date Smoking Tobacco: Never Assessed Sex and Gender Information Value Date Recorded Sex Assigned at Not on file Legal Sex Male 8:17 AM CDT Gender Identity Not on file Sexual Orientation Not on file Plan of Treatment Health Maintenance Due Date Last Done Comments Hepatitis C Virus (HCV) Screening 1955 Cologuard 2001 Colonoscopy 2001 Colorectal Cancer Screening 2001 Immunochemical Fecal Occult Blood 2001 Pneumococcal Immunization (5 0+ years) (1 of 1 - PCV) 2006 Zoster Immunization (1 of 2) 2006 SARS-COV-2 Immunization ( season) 2023 05/08/2020, 04/17/2020 Influenza Immunization (#1) 2024 Respiratory Syncytial Virus (RSV) Immunization (Adult) (1 - 1-dose 75+ series) 11/28/2031 DTaP/Tdap/Td Immunization Discontinued 01/29/2017 TdaP Immunization Completed 01/29/2017 Hepatitis B Immunization Aged Out No longer eligible based on patient's age to complete this topic Human Papillomavirus (HPV) Immunization Aged Out No longer eligible based on patient's age to complete this topic Meningococcal Immunization (ACWY) Aged Out No longer eligible based on patient's age to complete this topic Rotavirus Immunization Aged Out No lo nger eligible based on patient's age to complete this topic
--- NOTE | 2024-10-24 10:11 | ECG_ITS ---
Test Date: 2024-10-24 10:14:51 Measurements Intervals [place] Rate: 154 P: 0 WI: 0 QRS: -74 QRSD: 114 T: 146 QT: 294 QTc: 471 Interpretive Statements ATRIAL FLUTTER/TACHYCARDIA WITH RAPID VENTRICULAR RESPONSE MARKED LEFT AXIS DEVIATION [QRS AXIS < -30] No previous ECG available for comparison Electronically Signed On 10-24-2024 13:28:37 CDT by Eder Murphy M.D.
--- NOTE | 2024-10-24 10:26 | ED_ITS ---
HPI - Abdominal Pain General Chief Complaint: Abdominal Pain Stated Complaint: abdominal pain x1-2 weeks Time Seen by Provider: 10/24/24 10:11 Source: patient and family () Mode of arrival: ambulatory Limitations: no limitations History of Present Illness HPI narrative: Patient presents with epigastric abdominal pain of 1-2 weeks duration. This occurs intermittently. One is causing him to have difficulty getting comfortable and especially sleeping as lying flat seems to worsen his pain. This has never happened previously. 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 He had previously been on clopidogrel but his litigation support analyst Dr. Stephen discontinued this medication recently and told him he needed to take daily aspirin. Otherwise not on any other anticoagulation. His mother has a history of atrial fibrillation he denies any history of this. He believes he has a defibrillator in place for reported history of possible heart failure for which he is also on Entresto although he is not certain of particular diagnoses. He states he occasionally feels short of breath particularly at night when he is feeling uncomfortable and will also experience some occasional chest pain with his arms feeling weak. Abdominal surgeries include appendectomy and inguinal hernia repair, patient leaves on the right and possibly performed by Dr. Flaherty although cannot recall. He denies any hematuria, dysuria, urgency or frequency and denies any penile discharge. Denies any sick contacts. PCP Dr Guzman. Last oral intake was soup last evening and this morning he drink an Ensure. Last bowel movement was this morning. He denies any diarrhea or bloody stools. He does occasionally have constipation. He has had decreased appetite. No fevers or chills. This has never happened before does not follow regularly with the bean snapper. Denies any sick contacts. Nausea vomiting. Does drink a 24 pack beers per week. Related Data Home Medications ?Medication ?Instructions ?Recorded ?Confirmed ?Last Taken ?Type aspirin 325 mg tablet (Gonsalo 325 mg PO DAILY 11/23/19 05/18/20 05/18/20 History Aspirin) carvedilol 12.5 mg tablet 12.5 mg PO DAILY 11/23/1905/18/20 History clopidogrel 75 mg tablet 75 mg PO DAILY 11/23/19 03/3 03/1005/18/20 History multivit with minerals-iron 18 1 tablet PO DAILY 11/2205/17/20 11/23/19 07:00 History mg-folic ac 400 mcg-vit K 25 mcg tablet (Adults Multivitamin) simvastatin 80 mg tablet 80 mg PO HS 11/23/1905/17/ 1 11/23/19 07:00 History Allergies Allergy/AdvReac Type Severity Reaction Status Date / Time No Known Allergies Allergy Verified 05/18/20 07:36 [facility] Past Medical History Medical History (Updated 10/24/24 @ 17:49 by Becky Warren, ADELITA) Cardiac defibrillator in place Myocardial infarct, old Hypertension Hyperlipidemia CAD (coronary artery disease) Surgical History Surgical History History of appendectomy H/O hernia repair H/O cardiac catheterization 2020, Dr Palafox Stented coronary artery Family History Family History Father Family history of cardiovascular disease Mother Family history of congestive heart failure Atrial fibrillation Other Cerebrovascular accident Social History Social History Social History: Smoking packs per day: 0.5 Smoking cigarettes per day: 10.0 Years smoked: 30 Smoking pack-years: 15.00 Smoking status: Former smoker Tobacco type: cigarettes Smoking end date: 07/20/19 Alcohol intake: current Drinks per week: 24 Alcohol use details: Previously listed as 8 TO 10 BEERS PER WEEK; patient now states drinks a 24-pack Substance use: never Substance use type: does not use Living arrangements: with family Additional living arrangements comments: 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 HEAD: Normocephalic, atraumatic. EYES: Non injected, non icteric ENT: Nares clear, no rhinorrhea or epistaxis. Gross auditory acuity intact. NECK: Supple. No meningismus. CHEST: Speaking in full sentences. No respiratory distress. Cardiac device in place in left anterior chest. HEART: Irregularly irregular tachycardic rate and rhythm. . ABDOMEN: Soft, nondistended. No rigidity or guarding. Not peritoneal. Mild hepatomegaly. No tenderness to palpation throughout. Kaufman sign positive. EXTREMITIES: Normal range of motion. No lower extremity edema. SKIN: Warm, dry, no rash. NEURO: No focal deficits. Alert and oriented. Answering questions. Following commands. Normal speech without aphasia or dysarthria. PSYCH: Normal mood and affect. Procedures Intubation Intubation #1: Intubation Date: 10/24/24 Intubation Time: 18:06 Time out performed: Yes (17:46) sedative: Etomidate Mg Given: 20 paralytic: Rocuronium Mg Given: 75 Laryngoscope: other ([address] attempt Mac [address] Cornejo, 1 attempt Mac [address] Cornejo; 1 attempt glidescope [address] Macedo, successful) Tube Size (cm): 7.5 Method of Intubation: orotracheal Number of Attempts: 3 Tube Secured Depth (cm): 25 Tube Secured Location: lips Tube Placement Confirmation: visualized tube passing through cords, equal breath sounds bilaterally and confirmation by capnometry Intubation Complications: difficult intubation and other Course Vital Signs Vital signs: Vital Signs Pulse Rate 154 H 10/24/24 10:09 Respiratory Rate 16 10/24/24 10:09 Blood Pressure 105/59 L 10/24/24 10:09 Pulse Oximetry 98 10/24/24 10:09 Oxygen Delivery Room Air 10/24/24 10:09 Temperature 98.6 F 10/24/24 11:19 Pulse Rate 0 L 10/24/24 18:13 Respiratory Rate 11 L 10/24/24 18:01 Blood Pressure 149/112 H 10/24/24 18:06 Pulse Oximetry 51 L 10/24/24 18:01 Oxygen Delivery Room Air 10/24/24 10:09 MDM - Abdominal Pain MDM Narrative Medical decision making narrative: Patient presents with epigastric abdominal pain of 1-2 weeks duration. In the emergency department he is afebrile with vital signs notable for an elevated heart rate at 154 beats per minute. His blood pressure is also initially noted to be with a slightly low diastolic blood pressure but mean arterial pressure 74 mm Hg. Repeat blood pressure is improved this without interval intervention. EKG showing atrial fibrillation/atrial flutter with rapid ventricular response (AFib/A flutter with RVR). This is supported by (age, underlying cardiopulmonary disease/hypertension/heart failure/valvular disease, COPD, hyperthyroidism, sepsis, pulmonary embolism, and electrolyte abnormalities. An IV was placed and the patient was put on cardiac and pulse oximetry monitors. ECG showed an irregularly irregular narrow-complex tachycardia without associated P-waves, consistent with the diagnosis of Afib with RVR. Patient hemodynamically stable thus early priority in management was to slow the ventricular rate using metoprolol given he is already on carvedilol/beta raghu at baseline. IVP 5mg over 2 minutes initially ordered. At 1st there is transient change with patient's rate in the 100 and 10s and then return to the 100 and 20s/130s however shortly thereafter that his heart rate is noted to be between the high 80s and 90s. Repeat EKG ordered but just after that he is noted to be with a rate of 130s-150s again. 2.5 additional IV metoprolol ordered with holding parameters. 1L IV fluids ordered as well in addition to analgesia, basic labs, and RUQ US. ALT > AST elevation. Troponin elevated, no prior for comparison. ASA and 3 hour troponin ordered. BNP elevated suggestive of acute heart failure, no prior for comparison but > 6000. CT PE study for elevated dimer + CT Abd pelvis for epigastric abd pain with transaminitis ordered. Patient received 2 additional doses of metoprolol , an additional 2.5mg and 5mg. Discussed with air traffic control specialist center hospitalist LORENA Pena who accepts patient to IMU, recommends consultation with litigation support analyst to discuss Elliquis versus heparin. In discussion with on-call litigation support analyst Dr. Stephen who is also patient's litigation support analyst previous cardiac catheterization note from 2020 is reviewed which reviews previous interventions and areas of concern including RCA and prior stent. Notes that EF at that time estimated to be 10%. Given this, will start amiodarone rather than attempting to give diltiazem for intermittent persistent RVR. Will also start heparin as anticoagulation. I was notified at approximately 2:40 p.m. that patient had become hypotensive and was diaphoretic. I went to bedside and he continues to denies any chest pain or abdominal pain. He had received his amiodarone bolus which had temporarily improved rate to the 80s. 500cc fluids ordered (judicious given EF) and lactic ordered. This is normal. Troponin 2 hr continues to be elevated, increasing. 6 hour troponin ordered. Repeat EKG now shows conversion to NSR. Blood gas obtained is felt to be venous. Remains hypotensive. Concern for cardiogenic shock. Discussed with Dr Laird who recommends phenylephrine drip and admit to ICU. PICC line ordered and inserted by team. This is started and titrated per protocol. Patient will occasionally demonstrate response but not sustained. Patient now feeling short of breath and with chest pain which then resolves but then having low back pain, felt to be due to being in bed. Patient wanting to stand which is now allowed but repositioned numerous times. Does not appear volume overloaded (trace to 1+ edema in bilateral LEs, possibly very faint bibasilar crackles though nothing marked. Repeat CXR with some edema but not marked. DIscussed again with Dr Laird, supervisor rough end who concurs with starting Levophed. Unable to obtain good wave form for SpO2 but cyanotic nose and cool extremities. For this reason, will intubate. Both vasopressors are going and titrated long enough to demonstrate multiple acceptable blood pressures given strong concern of risk of carlos-intubation arrest. Patient's radial pulses are now stronger and multiple MAPs >75 (though time between time out and pushing drugs and performing intubation was delayed to confirm acceptable BPs given there were 2 poor BPs). Intubation performed as above see procedure note. Patient had been amenable to intubation in verbal consent process in anticipation of the procedure. However, he did state that in general he is a DNR and has a living will and would not generally want chest compressions or intubation. in the room during this. Just after successful intubation, patient becomes bradycardic and loses pulses. Given the carlos-arrest and desire to notify , chest compressions were advised to be performed by myself, over-riding patient's stated wishes briefly. She is quickly in the aguila way and confirms to honor his stated wishes of not performing compressions thus they are immediately stopped. Medications acceptable but patient's defibrillator does not fire and he is asystole on the monitor. Vitals: Patient does not have vital signs General: Patient is unresponsive Head: Normocephalic, atraumatic. Eyes: Pupils are fixed and dilated. ENT: External ears WNL. Nares patent. Oropharynx is clear with no erythema or exudate. Neck: Supple no masses. Trachea is midline. Laungs: No spontaneous respirations, ventilation assisted with BVM, SpO2 50s-60s though poor wave form. Cardiovascular: No pulses were palpated at carotid or femoral Neurological: Patient does not display any spontaneous activity, is unresponsive, does not withdraw to pain. Skin: Cold and pale, cyanotic. No pulses are palpated and there is cardiac standstill on ultrasound. Given this, further resuscitative efforts are futile and the patient is pronounced . is present and patient's daughters soon present at bedside. Time of called at 18:13 == Critical Care: 1 or more vital organ systems impaired with a high probability of imminent or life-threatening deterioration in the patient's condition requiring frequent personal assessment and manipulation of the patient's condition. This included time spent evaluating the patient, speaking with EMS pre-hospital personnel and family, reviewing/interpreting laboratory/imaging studies, discussing the case with consultants or admitting teams, retrieving data and reviewing charts, monitoring for decompensation, documenting the visit, and performing bundled procedures exclusive of separately billed procedures. Differential Diagnosis Differential diagnosis: Likely abdominal pain, constipation, diverticulitis, pancreatitis, small bowel obstruction and other (new onset afib/aflutter; ACS; biliary pathology; electrolyte abnormalities; gastritis; thyroid dysfunction; PE; ) Medical Records Medical records narrative: Reviewed cardiac cath note from 2020 Lab Data Attestation: I reviewed the patient's lab results. Lab results narrative: CBC was mild abnormalities on the differential but otherwise without anemia, thrombocytopenia, leukocytosis Ketonuria and proteinuria but otherwise without signs of infection on UA (despite findings on CT) 10/24/24 10:52 10/24/24 10:52 Labs: Lab Results 10/24/24 10/24/24 10/24/24 Range/Units 10:51 10:52 10:52 WBC 8.1 (4.5-10.0) K/mm3 RBC 4.81 (4.6-6.20) M/mm3 Hgb 14.2 (14.0-18.0) g/dL Hct 43.7 (42.0-52.0) % MCV 90.9 (80-100) fl MCH 29.5 (26-34) pg MCHC 32.5 (32-36) g/dl RDW 13.6 (11.5-14.5) % Plt Count 193 (150-375) k/mm3 MPV 10.4 (7.4-10.4) fl Immature Gran % (Auto) 0.2 (0-0.5) % Neut % (Auto) 63.7 (45.5-73.1) % Lymph % (Auto) 26.4 (18.3-44.2) % Tucker % (Auto) 8.8 H (2.6-8.5) % Eos % (Auto) 0.5 (0-4.4) % Baso % (Auto) 0.4 (0.2-1.2) % Lymph # (Auto) 2.14 (0.9-3.2) K/mm3 Tucker # (Auto) 0.7 H (0.1-0.6) K/mm3 Eos # (Auto) 0.0 (0-0.3) K/mm3 Baso # (Auto) 0.0 (0.0-0.1) K/mm3 Abs Immat Gran (auto) 0.02 (0.00-0.031) K/mm3 Absolute Neuts (auto) 5.2 (1.3-6.7) K/mm3 Absolute Nucleated RBC 0.000 (0.0-0.012) K/mm3 Nucleated RBC % 0.0 (0.0-0.2) % PT 16.5 H (11.1-14.7) Seconds INR 1.4 APTT 27.7 (22.3-36.8) Seconds D-Dimer 1.89 H Cancelled (<0.48) ug/mL Sodium 137 (137-145) mmol/L Potassium 4.1 (3.4-5.0) mmol/L Chloride 102 (98-107) mmol/L Carbon Dioxide 25 (22-30) mmol/L Anion Gap 10 (4-12) mmol/L BUN 24 H (9-20) mg/dL Creatinine 1.13 (0.7-1.3) mg/dL Estim Creat Clear Calc 68 ml/min Estimated GFR > 60 (59 - ) Glucose 125 H (65-110) mg/dL POC Capillary Glucose (65-105) mg/dl Lactic Acid (0.7-2.0) mmol/L Calcium 9.5 (8.4-10.2) mg/dL Total Bilirubin 0.8 (0.2-1.3) mg/dL AST 75 H (17-59) U/L ALT 124 H (6-50) U/L Alkaline Phosphatase 65 (38-126) U/L Troponin I 0.328 H* (0.000-0.034) ng/mL NT-Pro-B Natriuret Pep 6290 H (19.9-100) pg/mL Total Protein 6.8 (6.3-8.2) g/dL Albumin 4.1 (3.5-5.1) g/dL Lipase 46 (23-300) U/L TSH 1.870 (0.465-4.680) uIU/mL Urine Color Dark yellow (Yellow) Urine Appearance Clear (Clear) Urine pH 5.5 (5.0-9.0) Ur Specific [place]ill 1.030 (1.001-1.035) Urine Protein 2+ H (Negative) mg/dL Urine Glucose (UA) Negative (Negative) mg/dL Urine Ketones 2+ H (Negative) mg/dL Ur Blood (Man) Trace (Negative) Urine Nitrate Negative (Negative) Urine Bilirubin 1+ H (Negative) Urine Urobilinogen 1.0 (<2.0) mg/dL Leukocyte Esterase Rfl Negative (Negative) JUAN J/UL Urine RBC 0-2 (0-2) /hpf Urine WBC 0-5 (0-3) /hpf Ur Squamous Epith Cells None seen (Few) /hpf Urine Bacteria None seen /hpf Urine Casts 3-5 Acetaminophen < 10 L (10-30) ug/mL 10/24/24 10/24/24 Range/Units 14:49 15:38 WBC (4.5-10.0) K/mm3 RBC (4.6-6.20) M/mm3 Hgb (14.0-18.0) g/dL Hct (42.0-52.0) % MCV (80-100) fl MCH (26-34) pg MCHC (32-36) g/dl RDW (11.5-14.5) % Plt Count (150-375) k/mm3 MPV (7.4-10.4) fl Immature Gran % (Auto) (0-0.5) % Neut % (Auto) (45.5-73.1) % Lymph % (Auto) (18.3-44.2) % Tucker % (Auto) (2.6-8.5) % Eos % (Auto) (0-4.4) % Baso % (Auto) (0.2-1.2) % Lymph # (Auto) (0.9-3.2) K/mm3 Tucker # (Auto) (0.1-0.6) K/mm3 Eos # (Auto) (0-0.3) K/mm3 Baso # (Auto) (0.0-0.1) K/mm3 Abs Immat Gran (auto) (0.00-0.031) K/mm3 Absolute Neuts (auto) (1.3-6.7) K/mm3 Absolute Nucleated RBC (0.0-0.012) K/mm3 Nucleated RBC % (0.0-0.2) % PT (11.1-14.7) Seconds INR APTT (22.3-36.8) Seconds D-Dimer (<0.48) ug/mL Sodium (137-145) mmol/L Potassium (3.4-5.0) mmol/L Chloride (98-107) mmol/L Carbon Dioxide (22-30) mmol/L Anion Gap (4-12) mmol/L BUN (9-20) mg/dL Creatinine (0.7-1.3) mg/dL Estim Creat Clear Calc ml/min Estimated GFR (59 - ) Glucose (65-110) mg/dL POC Capillary Glucose 129 H (65-105) mg/dl Lactic Acid 1.9 (0.7-2.0) mmol/L Calcium (8.4-10.2) mg/dL Total Bilirubin (0.2-1.3) mg/dL AST (17-59) U/L ALT (6-50) U/L Alkaline Phosphatase (38-126) U/L Troponin I 0.485 H* D (0.000-0.034) ng/mL NT-Pro-B Natriuret Pep (19.9-100) pg/mL Total Protein (6.3-8.2) g/dL Albumin (3.5-5.1) g/dL Lipase (23-300) U/L TSH (0.465-4.680) uIU/mL Urine Color (Yellow) Urine Appearance (Clear) Urine pH (5.0-9.0) Ur Specific Hemphill (1.001-1.035) Urine Protein (Negative) mg/dL Urine Glucose (UA) (Negative) mg/dL Urine Ketones (Negative) mg/dL Ur Blood (Man) (Negative) Urine Nitrate (Negative) Urine Bilirubin (Negative) Urine Urobilinogen (<2.0) mg/dL Leukocyte Esterase Rfl (Negative) JUAN J/UL Urine RBC (0-2) /hpf Urine WBC (0-3) /hpf Ur Squamous Epith Cells (Few) /hpf Urine Bacteria /hpf Urine Casts Acetaminophen (10-30) ug/mL Imaging Data Radiologist's impression: ITS Impressions Abdomen Ultrasound 10/24/24 12:07 IMPRESSION: 1. Normal right upper quadrant ultrasound. Chest/Abdomen/Pelvis CTA 10/24/24 12:53 IMPRESSION: 1. No pulmonary embolism. 2. Very small right pleural effusion. 3. Small pericardial effusion. 4. Mild wall thickening of the bladder and mild stranding in the surrounding fat raising possibility of cystitis. Correlate with urinalysis. 5. Nonspecific small amount of ascites in the deep pelvis. 6. Small right and moderate-sized left inguinal hernias, both containing fat and with additional small amount of ascites on the left. 7. Extensive atherosclerotic disease and bilateral common iliac artery aneurysms with severe stenosis at the bifurcation of the left common iliac artery. Chest X-Ray 10/24/24 17:21 IMPRESSION: 1. Right PICC line tip near the superior cavoatrial junction. 2. Persistent mild reticular opacities at the bilateral lung bases which could represent atelectasis or minimal pulmonary edema. ECG Data EKG #1: Attestation: I personally reviewed and interpreted this ECG as follows: ECG completion date: 10/24/24 ECG completion time: 10:14 Prior ECG tracings: available for review (Previous EKG from 04/02/2016 showed a sinus rhythm with intraventricular conduction delay) Interpretation: Atrial flutter versus tachycardia with RVR, rate 154bpm. No appreciable P- waves. QRS 114. QT/QTC 294/381. Poor R-wave progression across the precordial leads. Marked Left axis deviation (QRS is positive with dominant R wave in Lead I; QRS is negative with dominant S wave in leads II, III, and aVF). No T-wave inversions. EKG #2: Attestation: I personally reviewed and interpreted this ECG as follows: ECG completion date: 10/24/24 ECG completion time: 11:09 Interpretation: A flutter/Afib with RVR 139. QRS 113. QT/QTC 316/397. EKG #3: Attestation: I personally reviewed and interpreted this ECG as follows: ECG completion date: 10/24/24 ECG completion time: 11:14 Interpretation: Irregularly irregular rhythm P-waves consistent with atrial flutter at a rate of 80 beats per minute. QRS 126. QT/QTC 397/443. Marked Left axis deviation (QRS is positive with dominant R wave in Lead I; QRS is negative with dominant S wave in leads II, III, and aVF). Poor R-wave progression across the precordial leads. No T-wave inversions. EKG #4: Attestation: I personally reviewed and interpreted this ECG as follows: ECG completion date: 10/24/24 ECG completion time: 16:01 Interpretation: Normal sinus rhythm at a rate of 69 beats per minute. NV interval slightly prolonged at 201 milliseconds consistent with a first-degree AV block. QRS 126. QT/QTC 425/444. Poor R-wave progression across the precordial leads. Marked Left axis deviation (QRS is positive with dominant R wave in Lead I; QRS is negative with dominant S wave in leads II, III, and aVF) no T-wave inversions. Critical Care Time Critical Care Time Critical Care Time: Yes Total Critical Care Time: 100 Discharge Plan Discharge Clinical Impression: Epigastric abdominal pain, New onset atrial flutter, Atrial flutter with rapid ventricular response, Ketonuria, Proteinuria, Elevated ALT measurement, Elevated AST (SGOT), Non-ST elevation WA (NSTEMI), Pleural effusion on right, Pericardial effusion, Ascites, Hernia, inguinal, right, Hernia, inguinal, left, Atherosclerosis of aorta, Aneurysm artery, iliac common Patient Disposition: Condition: Time of Disposition: 18:13
[2024-10-24] MEDS: METOPROLOL TARTRATE INJ 5 MG/5 ML VIAL IV PUSH ×2 (10:35→13:15)
[2024-10-24] MEDS: SODIUM CHLORIDE 0.9% IV 1,000 ML 999 ML IV CONT (11:01)
[2024-10-24] MEDS: MORPHINE SULFATE (*CRX) 4 MG/ML INJ IV PUSH (11:01)
--- NOTE | 2024-10-24 11:02 | ECG_ITS ---
Test Date: 2024-10-24 11:09:46 Measurements Intervals [place] Rate: 139 P: 0 GA: 0 QRS: -60 QRSD: 113 T: 119 QT: 316 QTc: 481 Interpretive Statements ATRIAL FLUTTER/TACHYCARDIA WITH RAPID VENTRICULAR RESPONSE MARKED LEFT AXIS DEVIATION [QRS AXIS < -30] ANTEROSEPTAL MYOCARDIAL INFARCTION , OF INDETERMINATE AGE [40+ ms Q WAVE IN V1-V4] MODERATE T-WAVE ABNORMALITY, CONSIDER LATERAL ISCHEMIA [-0.1+ mV T WAVE IN I/aVL/V5/V6] Compared to ECG 10/24/2024 10:14:51 T-wave abnormality now present Possible ischemia now present Myocardial infarct finding still present Electronically Signed On 10-24-2024 13:29:05 CDT by Eder Murphy M.D.
[2024-10-24 11:10] LABS: Hematocrit 43.7 % (42.0-52.0); Hemoglobin 14.2 g/dL (14.0-18.0); Immature Granulocyte Percent A 0.2 % (0-0.5); Lymphocytes Absolute Auto 2.14 K/mm3 (0.9-3.2); Mean Corpuscular HGB Conc 32.5 g/dl (32-36); Mean Corpuscular Hemoglobin 29.5 pg (26-34); Mean Corpuscular Volume 90.9 fl (80-100); Nucleated Red Blood Cells Absolute Auto 0.000 K/mm3 (0.0-0.012); Nucleated Red Blood Cells Perc 0.0 % (0.0-0.2); Platelet Count Result 193 k/mm3 (150-375); Red Blood Count 4.81 M/mm3 (4.6-6.20); White Blood Count 8.1 K/mm3 (4.5-10.0)
[2024-10-24] MEDS: METOPROLOL TARTRATE INJ 5 MG/5 ML VIAL 2.5 MG IV PUSH (11:10)
--- NOTE | 2024-10-24 11:13 | ECG_ITS ---
Test Date: 2024-10-24 14:55:50 Measurements Intervals [place] Rate: 112 P: 0 RI: 0 QRS: -58 QRSD: 121 T: 120 QT: 348 QTc: 477 Interpretive Statements ATRIAL FLUTTER/TACHYCARDIA WITH RAPID VENTRICULAR RESPONSE MARKED LEFT AXIS DEVIATION [QRS AXIS < -30] ANTEROSEPTAL MYOCARDIAL INFARCTION , OF INDETERMINATE AGE [40+ ms Q WAVE IN V1-V4] T-WAVE ABNORMALITY; CONSIDER ISCHEMIA Compared to ECG 10/24/2024 11:09:46 Myocardial infarct finding still present Electronically Signed On 10-25-2024 15:48:17 CDT by Eder Murphy M.D.
[2024-10-24 11:17] LABS: Add Urine Microscopic? YES; Appearance Urine Clear (Clear); Glucose Urine UA Negative (Negative); Leukocyte Esterase Ur Negative LEU/UL (Negative); Nitrate Urine Negative (Negative); Specific Grav Ur 1.030 (1.001-1.035)
[2024-10-24 11:24] LABS: INR 1.4; Prothrombin Time 16.5 Seconds (11.1-14.7)
[2024-10-24 11:25] LABS: Partial Thromboplastin Time 27.7 Seconds (22.3-36.8)
[2024-10-24 11:26] LABS: Alanine Aminotransferase 124 U/L (6-50); Albumin Level 4.1 g/dL (3.5-5.1); Alkaline Phosphatase 65 U/L (38-126); Anion Gap 10 mmol/L (4-12); Aspartate Amino Transferase 75 U/L (17-59); Bilirubin,Total 0.8 mg/dL (0.2-1.3); Blood Urea Nitrogen 24 mg/dL (9-20); Calcium 9.5 mg/dL (8.4-10.2); Carbon Dioxide 25 mmol/L (22-30); Chloride 102 mmol/L (98-107); Estimated CRCL calculation 68 ml/min; Estimated Glomerular Filt Rate > 60; Glucose 125 mg/dL (65-110); Lipase 46 U/L (23-300); Potassium 4.1 mmol/L (3.4-5.0); Sodium 137 mmol/L (137-145); Total Protein 6.8 g/dL (6.3-8.2)
[2024-10-24 11:31] LABS: NT Pro B Type Natriuretic Pept 6290 pg/mL (19.9-100)
[2024-10-24 11:40] LABS: Troponin I 0.328 ng/mL (0.000-0.034)
[2024-10-24 11:58] LABS: Thyroid Stimulating Hormone 1.870 uIU/mL (0.465-4.680)
[2024-10-24] MEDS: ASPIRIN 81 MG CHEWABLE TABLET 324 MG PO (12:23)
[2024-10-24 13:06] LABS: Acetaminophen < 10 ug/mL (10-30)
--- NOTE | 2024-10-24 13:45 | P.HP_ITS ---
H&P: HPI History of Present Illness Date/Time: 10/24/24 13:45 Chief Complaint: Epigastric and chest pain Narrative: 68-year-old male history ETOH use, cardiac stents cardiac defibrillator, hypertension hyperlipidemia presents the hospital with epigastric and chest pain. Patient states that he has had epigastric pain for the last week or 2. He states that it is worse at night when he is lying flat causing shortness of breath. Patient on was on non-rebreather during assessment he is tachypneic nods yes or no to questions. Patient states that he feels worse than when he originally presented to the hospital with tachycardia. Lab work in the ED shows D-dimer 1.89, BUN 24 glucose of 125 AST is 75, ALT of 125 troponin of 0.3-8 BNP of 6002 her 90, UA negative for infection. EKG in the emergency room shows atrial flutter at 154. Patient was given 3 doses of metoprolol which did not have adequate control of heart rate so he was started on diltiazem. Cardiology was consulted and put the patient on amiodarone. After amiodarone bolus patient became hypotensive. The ICU was consulted are with recommendations for PICC line and pressors. Patient started complaining of acute shortness of breath and became hypoxic placed on non-rebreather. Plan to intubate patient. Patient had at difficult intubation. Shortly after intubation and patient had Vito down. His code status was no CPR okay for ventilation which was confirmed by his . Patient was pronounced bed the ED attending. is at bedside. See ED note for details [facility] Past Medical History Medical History (Updated 10/24/24 @ 17:49 by Becky Warren, ADELITA) Cardiac defibrillator in place Myocardial infarct, old Hypertension Hyperlipidemia CAD (coronary artery disease) Surgical History Surgical History History of appendectomy H/O hernia repair H/O cardiac catheterization 2020, Dr Palafox Stented coronary artery Family History Family History Father Family history of cardiovascular disease Mother Family history of congestive heart failure Atrial fibrillation Other Cerebrovascular accident Social History Social History Social History: Smoking packs per day: 0.5 Smoking cigarettes per day: 10.0 Years smoked: 30 Smoking pack-years: 15.00 Smoking status: Former smoker Tobacco type: cigarettes Smoking end date: 07/20/19 Alcohol intake: current Drinks per week: 24 Alcohol use details: Previously listed as 8 TO 10 BEERS PER WEEK; patient now states drinks a 24-pack Substance use: never Substance use type: does not use Living arrangements: with family Additional living arrangements comments: Additional occupation/education comments: [employer] Spiritual care concerns: No Meds Home Medications and Allergies Home Medications ?Medication ?Instructions ?Recorded ?Confirmed ?Type aspirin 325 mg tablet (Gonsalo 325 mg PO DAILY 11/23/19 05/18/20 History Aspirin) carvedilol 12.5 mg tablet 12.5 mg PO DAILY 11/23/19 History clopidogrel 75 mg tablet 75 mg PO DAILY 11/23/1904/20 History multivit with minerals-iron 18 1 tablet PO DAILY 11/2205/17/20 History mg-folic ac 400 mcg-vit K 25 mcg tablet (Adults Multivitamin) simvastatin 80 mg tablet 80 mg PO HS 11/23/19 1 History sacubitril 24 mg-valsartan 26 mg 1 tablet PO BID #60 t abs 05/18/20 Rx tablet (Entresto) Allergies Allergy/AdvReac Type Severity Reaction Status Date / Time No Known Allergies Allergy Verified 05/18/20 07:36 Vital Signs Vital Signs - 24 hr 10/24/24 10:09 10/24/24 10:17 10/24/24 10:35 Temperature Pulse Rate 154 H 143 H 153 H Respiratory Rate 16 29 H Blood Pressure 105/59 L 116/81 Pulse Oximetry 98 96 Oxygen Delivery Room Air 10/24/24 11:10 10/24/24 11:19 10/24/24 13:15 Temperature 98.6 F Pulse Rate 141 H 87 153 H Respiratory Rate 18 Blood Pressure 82/67 L Pulse Oximetry 95 Oxygen Delivery Exam Narrative: General: well appearing, appears stated age. HEENT: normocephalic, atraumatic. Mucous membranes moist. EOMI, PERRLA, bilateral sclera anicteric, no conjunctival injection. Neck supple without JVD, lymphadenopathy, or bruit. Respiratory: clear to ascultation bilaterally. No rales/rhonic/wheezes. Cardiovascular: Regular rate and rhythm, normal S1-S2 upon ascultation. No murmurs, rubs, or clicks. PMI is nondisplaced, capillary refill less than 3 second. Abdomen: Soft, round, no pulsatile masses, nondistended and nontender. No rebound, no guarding. No CVA tenderness, no hepatosplenomegaly. Bowel sounds present to all four quadrants. No high pitch or tinkling sounds, resonant to percussion. Extremities: No cyanosis, clubbing, or edema present. Pulses are palpable 2/2. Active ROM to all four extremities. Neuro: Alert and orientated x 4. PERRLA. Cranial nerves 2-12 intact without focal deficit. Skin: Warm, dry, and intact, without rash, erythema, or lesion. Psych: pleasant, cooperative, normal speech, normal affect, no hallucinations, no dysarthia H&P: Results Labs Labs: Short CBC 10/24/24 Range/Units 10:52 WBC 8.1 (4.5-10.0) K/mm3 Hgb 14.2 (14.0-18.0) g/dL Hct 43.7 (42.0-52.0) % Plt Count 193 (150-375) k/mm3 BMP 10/24/24 10:52 Sodium 137 Potassium 4.1 Chloride 102 Carbon Dioxide 25 BUN 24 H Creatinine 1.13 Glucose 125 H Calcium 9.5 Cardiac Enzymes 10/24/24 Range/Units 10:52 Troponin I 0.328 H* (0.000-0.034) ng/mL Liver Function 10/24/24 Range/Units 10:52 Total Bilirubin 0.8 (0.2-1.3) mg/dL AST 75 H (17-59) U/L ALT 124 H (6-50) U/L Alkaline Phosphatase 65 (38-126) U/L Albumin 4.1 (3.5-5.1) g/dL Urine 10/24/24 Range/Units 10:51 Urine Color Dark yellow (Yellow) Urine Appearance Clear (Clear) Urine pH 5.5 (5.0-9.0) Ur Specific [place] 1.030 (1.001-1.035) Urine Protein 2+ H (Negative) mg/dL Urine Glucose (UA) Negative (Negative) mg/dL Assessment and Plan Assessment and plan (1) Hypotension: Code(s): I95.9 - Hypotension, unspecified Status: Acute Assessment and Plan: Cardiogenic shock versus sepsis versus other PICC line placed Levo and and phenylephrine (2) Acute respiratory failure: Code(s): J96.00 - Acute respiratory failure, unspecified whether with hypoxia or hypercapnia Status: Acute Assessment and Plan: Plan for intubation in ED and admission to ICU (3) Non-ST elevation AL (NSTEMI): Code(s): I21.4 - Non-ST elevation (NSTEMI) myocardial infarction Status: Acute Assessment and Plan: Cardiology consulted Heparin drip per protocol Trend troponins NPO midnight P.o. metoprolol Aspirin (4) Systolic heart failure: Code(s): I50.20 - Unspecified systolic (congestive) heart failure Status: Acute Assessment and Plan: Apparently patient's EF in 2000 was 10% Lasix x1 Echocardiogram pending (5) Atrial flutter with rapid ventricular response: Code(s): I48.92 - Unspecified atrial flutter Status: Acute Assessment and Plan: Patient was given metoprolol and diltiazem in ED without results Cardiology placed him on amiodarone drip Currently rate controlled (6) Pericardial effusion: Code(s): I31.39 - Other pericardial effusion (noninflammatory) Status: Acute Assessment and Plan: Echocardiogram pending (7) Epigastric abdominal pain: Code(s): R10.13 - Epigastric pain Status: Acute Assessment and Plan: IV Protonix (8) Ascites: Code(s): R18.8 - Other ascites Status: Acute Assessment and Plan: Seen on CT (9) ETOH abuse: Code(s): F10.10 - Alcohol abuse, uncomplicated Status: Acute Assessment and Plan: [facility] protocol Oral Ativan, thiamine, multivitamin and folic acid (10) Pleural effusion on right: Code(s): J90 - Pleural effusion, not elsewhere classified Status: Acute (11) Hypertension: Code(s): I10 - Essential (primary) hypertension Status: Acute Assessment and Plan: Holding all hypertensive medications
--- NOTE | 2024-10-24 14:14 | P.CONCA_ITS ---
Assessment and Plan Assessment and plan (1) Atrial flutter with rapid ventricular response: Code(s): I48.92 - Unspecified atrial flutter Status: Acute (2) Troponin level elevated: Code(s): R79.89 - Other specified abnormal findings of blood chemistry Status: Acute (3) Systolic heart failure: Code(s): I50.20 - Unspecified systolic (congestive) heart failure Status: Acute (4) ASHD (arteriosclerotic heart disease): Code(s): I25.10 - Atherosclerotic heart disease of [place] coronary artery without angina pectoris Status: Acute (5) Pericardial effusion: Code(s): I31.39 - Other pericardial effusion (noninflammatory) Status: Acute Plan 68 yo man with CAD sp PCI, ischemic CMP (LVEF 25%) sp ICD, and peripheral artery disease presented with abdominal pain also found to be in AFIB RVR AFIB RVR -discussed the risk and benefits of lowering his heart rate to below 110bpm and the different various drugs -while at risk of chemical conversion with amiodarone, the benefits may be greater in this case given his severe lv dysfunction, orthopnea, sob and evidence of potential instability -pt agree with moving forward with amiodarone drip and heparin drip -start metoprolol tartrate 25mg PO q6h and uptitrate as necessary -avoid CCB given his severe LV dysfunction Troponin elevation -likely secondary to acute heart failure and AFIB with RVR Acute on Chronic Systolic Heart Failure -lasix 20mg IVP and reassess; may require standing dose -transition home coreg to metoprolol given his soft blood pressures -hold entresto for now until BP improves and rates better controlled Pericardial Effusion -small on CT scan and would recommend obtain TTE -it has also been some years since he had repeat evaluation of his cardiac structures/function CAD sp PCI -continue ASA HLD -continue rosuvastatin Peripheral Vascular Disease -continue outpatient surveillance monitoring -aneurysms of the iliac arteries need repeat imaging outpatient History of Present Illness History of Present Illness Consult date/time: 10/24/24 14:14 Requesting physician: Becky Warren APRN Consult reason: atrial fibrillation Reason For Visit: abdominal pain x1-2 weeks Narrative: 68 yo man with CAD sp PCI, ischemic CMP (LVEF 25%) sp ICD, and peripheral artery disease presented with abdominal pain also found to be in AFIB RVR. States that he has shortness of breath that is best alleviated with sitting at about 60 degree incline. Has palpitations on and off lasting few seconds for the past two weeks. Denies syncope events. Few weeks prior to his abdominal pain, he was functional without any significant cardiopulmonary limitations. Review of Systems 2 Cardiovascular: Cardiovascular: Reports as per HPI Respiratory: Respiratory: Reports as per HPI [facility] Past Medical History Medical History (Updated 10/24/24 @ 14:22 by Eder Murphy MD) Cardiac defibrillator in place Myocardial infarct, old Hypertension Hyperlipidemia CAD (coronary artery disease) Surgical History Surgical History History of appendectomy H/O hernia repair H/O cardiac catheterization 2020, Dr Palafox Stented coronary artery Family History Family History Father Family history of cardiovascular disease Mother Family history of congestive heart failure Atrial fibrillation Other Cerebrovascular accident Social History Social History Social History: Smoking packs per day: 0.5 Smoking cigarettes per day: 10.0 Years smoked: 30 Smoking pack-years: 15.00 Smoking status: Former smoker Tobacco type: cigarettes Smoking end date: 07/20/19 Alcohol intake: current Drinks per week: 24 Alcohol use details: Previously listed as 8 TO 10 BEERS PER WEEK; patient now states drinks a 24-pack Substance use: never Substance use type: does not use Living arrangements: with family Additional living arrangements comments: 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 Spiritual care concerns: No Meds Home Medications and Allergies Home Medications ?Medication ?Instructions ?Recorded ?Confirmed ?Type aspirin 325 mg tablet (Gonsalo 325 mg PO DAILY 11/23/19 05/18/20 History Aspirin) carvedilol 12.5 mg tablet 12.5 mg PO DAILY 11/23/19 History clopidogrel 75 mg tablet 75 mg PO DAILY 11/23/19 03/03/10 History multivit with minerals-iron 18 1 tablet PO DAILY 11/2205/17/20 History mg-folic ac 400 mcg-vit K 25 mcg tablet (Adults Multivitamin) simvastatin 80 mg tablet 80 mg PO HS 10/05/20 03/30/2 1 History sacubitril 24 mg-valsartan 26 mg 1 tablet PO BID #60 t abs 05/18/20 Rx tablet (Entresto) Allergies Allergy/AdvReac Type Severity Reaction Status Date / Time No Known Allergies Allergy Verified 05/18/20 07:36 Vital Signs Vital Signs - 24 hr 10/24/24 10:09 10/24/24 10:17 10/24/24 10:35 Temperature Pulse Rate 154 H 143 H 153 H Respiratory Rate 16 29 H Blood Pressure 105/59 L 116/81 Pulse Oximetry 98 96 Oxygen Delivery Room Air 10/24/24 11:10 10/24/24 11:19 10/24/24 13:15 Temperature 37.0 C Pulse Rate 141 H 87 153 H Respiratory Rate 18 Blood Pressure 82/67 L Pulse Oximetry 95 Oxygen Delivery Exam 2 Const: General: uncomfortable Eyes: EOM: EOMs intact bilaterally Neck: Neck: no JVD Resp: Effort & Inspection: normal respiratory effort Auscultation: rales Cardio: Rate: tachycardic Rhythm: abnormal rhythm Extrem: General: no pedal edema Results Labs and Meds 10/24/24 10:52 10/24/24 10:52 Lab results: Cardiac Enzymes 10/24/24 Range/Units 10:52 AST 75 H (17-59) U/L Troponin I 0.328 H* (0.000-0.034) ng/mL Coagulation 10/24/24 Range/Units 10:52 PT 16.5 H (11.1-14.7) Seconds APTT 27.7 (22.3-36.8) Seconds CBC 10/24/24 Range/Units 10:52 WBC 8.1 (4.5-10.0) K/mm3 RBC 4.81 (4.6-6.20) M/mm3 Hgb 14.2 (14.0-18.0) g/dL Hct 43.7 (42.0-52.0) % Plt Count 193 (150-375) k/mm3 Lymph # (Auto) 2.14 (0.9-3.2) K/mm3 [place] # (Auto) 0.7 H (0.1-0.6) K/mm3 Eos # (Auto) 0.0 (0-0.3) K/mm3 Baso # (Auto) 0.0 (0.0-0.1) K/mm3 Comprehensive Metabolic Panel 10/24/24 Range/Units 10:52 Sodium 137 (137-145) mmol/L Potassium 4.1 (3.4-5.0) mmol/L Chloride 102 (98-107) mmol/L Carbon Dioxide 25 (22-30) mmol/L BUN 24 H (9-20) mg/dL Creatinine 1.13 (0.7-1.3) mg/dL Glucose 125 H (65-110) mg/dL Calcium 9.5 (8.4-10.2) mg/dL AST 75 H (17-59) U/L ALT 124 H (6-50) U/L Alkaline Phosphatase 65 (38-126) U/L Total Protein 6.8 (6.3-8.2) g/dL Albumin 4.1 (3.5-5.1) g/dL Intake and Output 10/23/24 10/24/24 10/24/24 23:59 07:59 15:59 Intake Total 1000 Balance 1000 Intake: IV 1000 Sodium Chloride 0.9% IV 1,000 1000 ml @ 999 mls/hr IV CONT .Q1H1M STA Rx#:[id number] Patient Weight 10/24/24 23:59 Weight 101 kg
[2024-10-24 15:30] LABS: Troponin I 0.485 ng/mL (0.000-0.034)
--- NOTE | 2024-10-24 15:46 | ECG_ITS ---
Test Date: 2024-10-24 16:01:20 Measurements Intervals [place] Rate: 69 P: 53 IN: 201 QRS: -63 QRSD: 126 T: 155 QT: 425 QTc: 457 Interpretive Statements SINUS RHYTHM POSSIBLE LEFT ATRIAL ENLARGEMENT [-0.1mV P WAVE IN V1/V2] MARKED LEFT AXIS DEVIATION [QRS AXIS < -30] ANTEROSEPTAL MYOCARDIAL INFARCTION , OF INDETERMINATE AGE [40+ ms Q WAVE IN V1-V4] ST-T WAVE ABNORMALITIES; CONSIDER LATERAL ISCHEMIA Compared to ECG 10/24/2024 14:55:50 Myocardial infarct finding still present Electronically Signed On 10-25-2024 15:49:21 CDT by Eder Murphy M.D.
[2024-10-24] MEDS: PHENYLEPHRINE HCL INJ 50 MG in SODIUM CHLORIDE 0.9% IV 245 ML 12 ML IV CONT (16:05)
[2024-10-24] MEDS: LIDOCAINE 1% PF INJ 5 ML VIAL INFILTRATE (16:50)
[2024-10-24 16:58] LABS: Fractional Inspired Oxygen 100 %; HCO3 ABG 20.5 mEq/l (22.0-26.0); PCO2 ABG 53.9 mmHg (35.0-45.0)
[2024-10-24] MEDS: NOREPINEPHRINE 8 MG/D5W 250 ML 8 MG/250 ML BAG 9.38 MG IV CONT (17:05)
[2024-10-24 17:07] LABS: PO2 ABG < 27.0 mmHg (80.0-100.0)
[2024-10-24 17:09] LABS: Modified Allen's Test Pass; Site Drawn LEFT BRACHIAL
--- NOTE | 2024-10-24 19:01 | PC.NURSE ---
at approximately 1300 the patient called out requesting oxygen due to feeling like he cant breathe. was placed on 2L NC by staff. patient became hypotensive, was having further difficulty breathing and became restless, wanting to sit try to stand, dangle legs off of the bed approximately around 1330 patient became diaphoretic, pale and stating that he couldn't breathe. patient repositioned, oxygen increased to 5L NC patient began complaining of off and on abdominal pain, chest pain, that would resolve on it's own without intervention. after bolus dose of amio patient became increasingly hypotensive requiring trendelenburg, 500mL fluid bolus, and was scheduled to get heparin. Discussed with Dr Harrison concerns with back/chest pain, restlessness, hypotension possible dissection issues. Dr. Harrison okayed holding of amio infusion, and heparin drip at that time. Patient continued to have increasing difficulty breathing and diaphoresis which required placement of NRB at 15L, discussed with propellant charge loader, and ERP. patient complained of pain, stated that it was from being stuck laying in this bed which the patient stated resolved on it's own. patient required peripheral pressure support including phenylepherin that was titrated up per protocol, and in turn required the addition of norepinepherine to maintain bp- titrating both up until bp was stable enough to intubate the patient. prior to intubation- dr harrison spoke with the patient and spouse- educated on the risks and benefits of intubation and were agreeable to the procedure. prior to intubation patient had stated that he had paperwork and did not want chest compressions but was okay being intubated at this time. patient spo2 was unable to be picked up for many hours even with changing location and equipment. at 1746 time out was preformed- discussed procedure, equipment available and present at bedside, medications, vital signs, roles of present staff members. 175 20 etomidate was given 175 75 rocuronium was given 175- tube was placed at 29 at the lip- with no success at bagging the patient, tube was withdrawn by dr harrison 180 - tube was placed by Dr. Macedo, color change noted, bilateral breath sounds present. patient noted to be bradycardic, with faint pulses present per dr harrison. increasing cyanosis present and noted, patient no longer had a palpable pulse 180 this rn was instructed by Dr. Harrison to start chest compressions while she spoke with of patient. wanted to have his wishes of no cpr 1 epi given at 0. 1812 ultrasound confirmation of no cardiac activity - time of called
--- NOTE | 2024-10-24 20:04 | PC.NURSE ---
spoke with Santiago at [facility] at this time. they will call back when a decision is made about patient
--- NOTE | 2024-10-24 20:15 | PC.NURSE ---
spoke with benefits coordinator who will be coming to take pictures
--- NOTE | 2024-10-24 20:43 | PC.NURSE ---
Call placed to Dr Nunez's exchange to inquire about signing the certificate.
--- NOTE | 2024-10-24 20:53 | PC.NURSE ---
Received a return call from Catie Crawford NP for Dr Bobby who states their office would sign the certificate.
--- NOTE | 2024-10-24 20:57 | PC.NURSE ---
Stage Technician at bedside.
--- NOTE | 2024-10-29 21:34 | P.DN_ITS ---
Discharge Summary Date and Time Date of : 10/24/24 Time of : 18:13 Provider Pronounced By: Provider Name of Provider That Pronounced: Clemente Probable Cause of Probable Cause of : Cardiogenic shock Summary Hospital Course: 68-year-old male history ETOH use, cardiac stents cardiac defibrillator, hypertension hyperlipidemia presents the hospital with epigastric and chest pain. Patient states that he has had epigastric pain for the last week or 2. He states that it is worse at night when he is lying flat causing shortness of breath. Patient on was on non-rebreather during assessment he is tachypneic nods yes or no to questions. Patient states that he feels worse than when he originally presented to the hospital with tachycardia. Lab work in the ED shows D-dimer 1.89, BUN 24 glucose of 125 AST is 75, ALT of 125 troponin of 0.3-8 BNP of 6002 her 90, UA negative for infection. EKG in the emergency room shows atrial flutter at 154. Patient was given 3 doses of metoprolol which did not have adequate control of heart rate so he was started on diltiazem. Cardiology was consulted and put the patient on amiodarone. After amiodarone bolus patient became hypotensive. The ICU was consulted are with recommendations for PICC line and pressors. Patient started complaining of acute shortness of breath and became hypoxic placed on non-rebreather. Patient was intubated in the emergency room. Patient had at difficult intubation. Shortly after intubation and patient had Vito down. His code status was no CPR, okay for ventilation which was confirmed by his . Patient was pronounced bed the ED attending. is at bedside. See ED note for details Additional Data Confirmation of as documented by pronouncing clinician: Pupillary Reflex, Palpable Pulses, Response to Stimuli, Heart Tones and Breath Sounds Name of Provider Notified: Dr Cornejo Time Provider Notified: 18:13 Provider Requests Autopsy: No Family Requests Autopsy: No District Engineer Notified: Yes Date [facility] Notified of : 10/24/24
== END 2024-10-24 18:13 | disposition expired ==
LOC: ANHED 14:19 → ANHIMU 14:45
PROVIDERS: Admitting Provider Internal Medicine; Emergency Provider Student in an Organized Health Care Education/Training Program; PCP Student in an Organized Health Care Education/Training Program; Visit Provider Nurse Practitioner Gerontology
DX: I21.4 Non-ST elevation (NSTEMI) myocardial infarction (principal); I50.23 Acute on chronic systolic (congestive) heart failure; J96.00 Acute respiratory failure, unspecified whether with hypoxia or hypercapnia; I31.39 Other pericardial effusion (noninflammatory); I48.92 Unspecified atrial flutter; R18.8 Other ascites; J90 Pleural effusion, not elsewhere classified; I46.9 Cardiac arrest, cause unspecified; I95.9 Hypotension, unspecified; R57.0 Cardiogenic shock; I11.0 Hypertensive heart disease with heart failure; I25.10 Atherosclerotic heart disease of native coronary artery without angina pectoris; I73.9 Peripheral vascular disease, unspecified; I48.91 Unspecified atrial fibrillation; F10.10 Alcohol abuse, uncomplicated; Z87.891 Personal history of nicotine dependence; Z79.82 Long term (current) use of aspirin; Z95.810 Presence of automatic (implantable) cardiac defibrillator; Z95.5 Presence of coronary angioplasty implant and graft
CPT/HCPCS: 31500; 36415; 36600; 71045; 71275; 74177; 76705; 80053; 80143; 81001; 82805; 82948; 83605; 83690; 83880; 84443; 84484; 85018; 85025; 85380; 85610; 85730; 93005; 96361; 96374; 96375; 96376; 99291; A9270; C1751; G0378; J0168; J0282; J0461; J0616; J2003; J2270; J2371; J7030; J7040; J7050; Q9967